=== PATIENT | male | born 1980 | race Caucasian/White ===

== ENCOUNTER 2022-11-29 19:05 | Emergency (ER) | payer SELFPAY ==
[~2022-11-29] VITALS: Ht 172.7 cm; Wt 87.0 kg
[2022-11-29 19:12] VITALS: BP 151/82
[2022-11-29 20:09] LABS: BASOPHILS % 0.9 % (0.0-2.0); EOSINOPHILS % 2.6 % (0.0-5.0); HEMATOCRIT. 47.5 % (42.0-52.0); HEMOGLOBIN. 16.6 g/dL (14.0-18.0); LYMPHOCYTES % 35.3 % (20.0-50.0); MEAN CORPUSCULAR HEMOGLOBIN 32.8 pg (28.0-32.0); MEAN CORPUSCULAR VOLUME 93.7 fL (80.0-94.0); MEAN PLATELET VOLUME 7.8 fl (7.4-10.4); MONOCYTES % 8.9 % (2.0-8.0); NEUTROPHILS % 52.3 % (40.0-76.0); PLATELET 209 x1000/uL (130-400); RED BLOOD CELL COUNT 5.08 mill/uL (4.7-6.1); RED CELL DISTRIBUTION WIDTH 13.1 % (11.6-14.6)
[2022-11-29 20:20] LABS: CHLORIDE 102 mEq/L (98-107)
[2022-11-29 20:30] LABS: ETHANOL BLOOD 231 mg/dL
[2022-11-29] MEDS ORDERED: VISCOUS LIDOCAINE 2% 15 ML UDC MM NR (21:30)
[2022-11-29] MEDS ORDERED: MAGNESIUM/ALUMINUM HYDROXIDE/SIMETHICONE 30ML UDC PO NR (21:30)
[2022-11-29 22:04] LABS: *AMPHETAMINES SCREEN URINE NEGATIVE (NEGATIVE); *BARBITURATES SCREEN URINE NEGATIVE (NEGATIVE); *BENZODIAZEPINES SCREEN URINE NEGATIVE (NEGATIVE); *COCAINE SCREEN URINE NEGATIVE (NEGATIVE); CANNABINOID URINE SCREEN NEGATIVE (NEGATIVE); METHADONE URINE SCREEN NEGATIVE (NEGATIVE); OPIATES URINE SCREEN NEGATIVE (NEGATIVE); PHENCYCLIDINE URINE SCREEN NEGATIVE (NEGATIVE)
[2022-11-29] MEDS ORDERED: PROT40 MT (22:32)
[2022-11-29] MEDS ORDERED: ASPI-1497 MT (22:32)
== END 2022-11-29 22:50 | disposition home or self-care (01) ==
LOC: ER 19:14
DX: R07.89 Other chest pain (principal); F10.129 Alcohol abuse with intoxication, unspecified; Y90.7 Blood alcohol level of 200-239 mg/100 ml; F17.200 Nicotine dependence, unspecified, uncomplicated; F14.10 Cocaine abuse, uncomplicated; F12.10 Cannabis abuse, uncomplicated
CPT/HCPCS: 36415; 71045; 80053; 80305; 80320; 83880; 84484; 85025; 93005; 99285; G0480

== ENCOUNTER 2024-06-28 13:55 | Emergency (ER) | payer MEDICAID, OTHER ==
[~2024-06-28] VITALS: Ht 170.2 cm; Wt 78.0 kg
[~2024-06-28 13:55] MED LIST: ASPI-1497 MT; PROT40 MT
[2024-06-28 13:57] VITALS: O2SAT 99
[2024-06-28] MEDS: FAMOTIDINE 20MG/2ML VIAL IV STA (14:45)
[2024-06-28] MEDS: IBUPROFEN 600MG TABLET PO ONE (14:52)
[2024-06-28] MEDS: SUCRALFATE 1G TABLET PO SCH (14:54)
[2024-06-28 15:32] LABS: BASOPHILS % 0.7 % (0.0-2.0); EOSINOPHILS % 1.1 % (0.0-5.0); HEMATOCRIT. 39.1 % (42.0-52.0); HEMOGLOBIN. 13.8 g/dL (14.0-18.0); LYMPHOCYTES % 27.4 % (20.0-50.0); MEAN CORPUSCULAR HEMOGLOBIN 31.9 pg (28.0-32.0); MEAN CORPUSCULAR HGB CONC 35.3 g/dL (31.0-37.0); MEAN CORPUSCULAR VOLUME 90.4 fL (80.0-94.0); MEAN PLATELET VOLUME 9.8 fl (7.4-10.4); MONOCYTES % 6.1 % (2.0-8.0); NEUTROPHILS % 64.7 % (40.0-76.0); PLATELET 199 x1000/uL (130-400); RED BLOOD CELL COUNT 4.32 mill/uL (4.7-6.1); RED CELL DISTRIBUTION WIDTH 12.7 % (11.6-14.6); WHITE BLOOD COUNT 8.6 x1000/uL (4.5-11.0)
[2024-06-28 15:39] LABS: CHLORIDE 103 mEq/L (98-107); POTASSIUM 3.9 mEq/L (3.5-5.1); SODIUM 134 mEq/L (136-145)
[2024-06-28 15:40] LABS: CARBON DIOXIDE 23 mEq/L (21-32)
[2024-06-28 15:41] LABS: CALCIUM 9.1 mg/dL (8.7-10.4)
[2024-06-28 15:46] LABS: UREA NITROGEN BLOOD 9 mg/dL (9-23)
[2024-06-28 15:47] LABS: ALANINE AMINOTRANSFERASE 47 IU/L (10-49); ALBUMIN 4.4 g/dL (3.2-4.8); ASPARTATE AMINOTRANSFERASE 32 IU/L (<34)
[2024-06-28 15:48] LABS: BILIRUBIN DIRECT 0.3 mg/dL (<=3.0); BILIRUBIN TOTAL 0.9 mg/dL (0.1-1.0); PROTEIN TOTAL 6.8 g/dL (6.0-8.3)
[2024-06-28 16:23] LABS: GLUCOSE 424 mg/dL (70-105)
[2024-06-28 16:37] LABS: BETA HYDROXYBUTYRATE 0.3 mMol/L (0.0-0.3)
[2024-06-28] MEDS: INSULIN REGULAR (HUMULIN R) 1000UNITS/10ML VIAL SUBCUT ONE (17:50)
[2024-06-28 18:25] VITALS: BP 130/81; PULSE 63; RESP 18; TEMP 36.72516; O2SAT 99
== END 2024-06-28 18:26 | disposition home or self-care (01) ==
LOC: ER 13:55
DX: E11.65 Type 2 diabetes mellitus with hyperglycemia (principal); R51.9 Headache, unspecified; R10.33 Periumbilical pain; F14.10 Cocaine abuse, uncomplicated; F12.10 Cannabis abuse, uncomplicated
CPT/HCPCS: 80076; 80048; 82010; 82962; 83690; 85025; 36415; 70450; 74176; 96372; 96374; 99285; J3490; J1815; Z7610 ×2